=== PATIENT | male | born 2000 | race Caucasian/White ===

== ENCOUNTER 2021-12-06 15:36 | Emergency (ER) | payer OTHER ==
[~2021-12-06] VITALS: Ht 177.8 cm; Wt 127.0 kg
== END 2021-12-06 18:19 | disposition home or self-care (01) ==
LOC: ED 15:36
DX: S02.2XXA Fracture of nasal bones, initial encounter for closed fracture (principal); W22.8XXA Striking against or struck by other objects, initial encounter
CPT/HCPCS: 70450; 70486; 99283-25